=== PATIENT | female | born 1985 | race Caucasian/White ===

== ENCOUNTER 2019-01-27 17:40 | Observation (INO) | payer OTHER ==
[~2019-01-27] VITALS: Ht 162.6 cm; Wt 90.3 kg
[2019-01-27 18:04] VITALS: BP 118/57
[2019-01-27] MEDS ORDERED: PREN1TAB80 PO (18:05)
== END 2019-01-27 20:00 | disposition home or self-care (01) ==
LOC: EDBD → 4S 17:40
PROVIDERS: ADMIT Obstetrics & Gynecology; ATTEND Obstetrics & Gynecology
DX: O24.410 Gestational diabetes mellitus in pregnancy, diet controlled (principal); O99.013 Anemia complicating pregnancy, third trimester; Z3A.34 34 weeks gestation of pregnancy
CPT/HCPCS: 81002; G0378

== ENCOUNTER 2019-03-04 16:10 | Inpatient (IN) | payer OTHER ==
[~2019-03-04] VITALS: Ht 163 cm; Wt 90.7 kg
[~2019-03-04 16:10] MED LIST: OXYTOCIN 30 UNITS/LACT RINGERS 500 ML IV ONE; PREN1TAB80 PO; RINGERS SOLUTION,LACTATED 1,000 ML IV PRN
[2019-03-04] MEDS ORDERED: LIDOCAINE/PF 1% 30 ML VIAL INJ PRN (16:15)
[2019-03-04] MEDS ORDERED: METOCLOPRAMIDE HCL 5 MG/ML 2 ML VIAL IVP PRN (16:15)
[2019-03-04] MEDS ORDERED: CITRIC ACID/SODIUM CITRATE 30 ML SOLUTION UDCUP PO PRN (16:15)
[2019-03-04] MEDS ORDERED: DINOPROSTONE 10 MG VAGINAL SUPPOSITORY VG ONE (16:15)
[2019-03-04 16:54] LABS: BASOPHILS % (AUTO) 0.9 % (0.0-2.0); EOSINOPHILS % (AUTO) 1.5 % (1.0-6.0); LYMPHOCYTES # (AUTO) 2.1 K/uL (1.0-4.8); LYMPHOCYTES % (AUTO) 19.6 % (22.0-44.0); MEAN CORPUSCULAR HEMOGLOBIN 28.4 pg (26.0-34.0); MEAN CORPUSCULAR HGB CONC 33.4 G/dL (31.0-37.0); MEAN CORPUSCULAR VOLUME 85 fL (80-100); MONOCYTES # (AUTO) 0.9 K/uL (0.1-1.0); MONOCYTES % (AUTO) 8.5 % (2.0-9.0); NEUTROPHILS # (AUTO) 7.4 K/uL (1.8-7.7); NEUTROPHILS % (AUTO) 69.5 % (40.0-70.0); PLATELET COUNT (AUTO) 240 K/uL (150-450); RED BLOOD CELL COUNT(AUTO) 4.23 MIL/uL (4.00-5.20); RED CELL DISTRIBUTION WIDTH 14.1 % (11.5-14.5)
[2019-03-04 17:03] VITALS: BP 133/67
[2019-03-04] MEDS: RINGERS SOLUTION,LACTATED 1,000 ML IV SCH ×2 (17:48→23:47)
[2019-03-04 18:14] LABS: GLUCOMETER DEV NAME(LOC) 4S.; GLUCOSE,POINT OF CARE 80 MG/DL (70-110)
[2019-03-04] MEDS ORDERED: OXYGEN THERAPY IH SCH (20:00)
[2019-03-05] MEDS ORDERED: BUTORPHANOL TARTRATE 2 MG/ML VIAL IVP PRN
[2019-03-05] MEDS ORDERED: -PHARMACY NOTE- MISC ONE (04:15)
[2019-03-05] MEDS: FentaNYL CITRATE-PF 100 MCG/2 ML VIAL IVP PRN ×2 (05:08→05:15)
[2019-03-05] MEDS ORDERED: LIDOCAINE/PF 2% 5 ML VIAL ONE (06:18)
[2019-03-05] MEDS ORDERED: ROPIVACAINE HCL/PF 0.2% 100 ML ED ONE (06:18)
[2019-03-05] MEDS: RINGERS SOLUTION,LACTATED 1,000 ML IV SCH ×2 (06:28→12:09)
[2019-03-05] MEDS ORDERED: ROPIVACAINE HCL/PF 0.2% 100 ML ED PRN (06:45)
[2019-03-05] MEDS ORDERED: ONDANSETRON HCL 4 MG/2 ML VIAL IVP PRN (06:45)
[2019-03-05] MEDS ORDERED: NALBUPHINE HCL 10 MG/ML VIAL IVP PRN (06:45)
[2019-03-05] MEDS ORDERED: DiphenhydrAMINE HCL 50 MG/ML VIAL IVP PRN (06:45)
[2019-03-05] MEDS ORDERED: OXYTOCIN 30 UNITS/LACT RINGERS 500 ML IV PRN (07:04)
[2019-03-05 09:45] LABS: GLUCOMETER DEV NAME(LOC) 4S.; GLUCOSE,POINT OF CARE 91 MG/DL (70-110)
[2019-03-05] MEDS ORDERED: OXYTOCIN 30 UNITS/LACT RINGERS 500 ML IV ONE (17:54)
[2019-03-05] MEDS ORDERED: MAGNESIUM HYDROXIDE SUSPENSION 30 ML UDCUP PO PRN (18:00)
[2019-03-05] MEDS ORDERED: LIDOCAINE/PF 1% 30 ML VIAL INJ PRN (18:00)
[2019-03-05] MEDS ORDERED: OxyCODONE HCL/ACETAMINOPHEN 5-325 MG TABLET PO PRN ×2 (18:00)
[2019-03-05] MEDS ORDERED: GLYCERIN/WITCH HAZEL LEAF 40 PADS JAR TP PRN (18:00)
[2019-03-05] MEDS ORDERED: BENZOCAINE 20%/MENTHOL 56 GM SPRAY CANISTER TP PRN (18:00)
[2019-03-05] MEDS ORDERED: LANOLIN 7 GM OINTMENT TP PRN (18:00)
[2019-03-05] MEDS: IBUPROFEN 800 MG TABLET PO PRN (18:18)
[2019-03-06 06:36] LABS: BASOPHILS % (AUTO) 0.5 % (0.0-2.0); EOSINOPHILS % (AUTO) 0.8 % (1.0-6.0); HEMATOCRIT 30.6 % (36-46); HEMOGLOBIN 10.5 g/dL (12.0-16.0); LYMPHOCYTES # (AUTO) 2.7 K/uL (1.0-4.8); LYMPHOCYTES % (AUTO) 16.3 % (22.0-44.0); MEAN CORPUSCULAR HGB CONC 34.2 G/dL (31.0-37.0); MEAN CORPUSCULAR VOLUME 85 fL (80-100); MONOCYTES # (AUTO) 1.5 K/uL (0.1-1.0); MONOCYTES % (AUTO) 8.8 % (2.0-9.0); NEUTROPHILS # (AUTO) 12.4 K/uL (1.8-7.7); NEUTROPHILS % (AUTO) 73.6 % (40.0-70.0); PLATELET COUNT (AUTO)-OB 218 K/uL (150-450); RED BLOOD CELL COUNT(AUTO) 3.61 MIL/uL (4.00-5.20); RED CELL DISTRIBUTION WIDTH 14.2 % (11.5-14.5)
[2019-03-06] MEDS: IBUPROFEN 800 MG TABLET PO PRN (10:08)
[2019-03-06] MEDS ORDERED: IBUP-2071 PO (12:33)
[2019-03-06] MEDS ORDERED: DSS100 PO (12:35)
[2019-03-06] MEDS ORDERED: FERR-89 PO (12:35)
== END 2019-03-06 19:40 | disposition home or self-care (01) | DRG 807 ==
LOC: OBSVTOIN 16:10 → 4S 16:10
PROVIDERS: ADMIT Obstetrics & Gynecology; ATTEND Obstetrics & Gynecology
PROC: 10D07Z6 Extraction of Products of Conception, Vacuum, Via Natural or Artificial Opening (ICD-10-PCS; principal; 2019-03-05)
PROC: 10907ZC Drainage of Amniotic Fluid, Therapeutic from Products of Conception, Via Natural or Artificial Opening (ICD-10-PCS; 2019-03-05)
PROC: 0HQ9XZZ Repair Perineum Skin, External Approach (ICD-10-PCS; 2019-03-05)
PROC: 0UQMXZZ Repair Vulva, External Approach (ICD-10-PCS; 2019-03-05)
PROC: 3E0R3BZ Introduction of Anesthetic Agent into Spinal Canal, Percutaneous Approach (ICD-10-PCS; 2019-03-05)
PROC: 00HU33Z Insertion of Infusion Device into Spinal Canal, Percutaneous Approach (ICD-10-PCS; 2019-03-05)
DX: O24.420 Gestational diabetes mellitus in childbirth, diet controlled (principal); Z37.0 Single live birth; O76 Abnormality in fetal heart rate and rhythm complicating labor and delivery; O70.0 First degree perineal laceration during delivery; Z3A.39 39 weeks gestation of pregnancy
CPT/HCPCS: 86850; 86900; 86901; J0595; J2590; J2795; J3010; J3490; J7120